=== PATIENT | male | born 1985 | race Caucasian/White ===

== ENCOUNTER 2017-06-08 02:34 | Emergency (ER) | payer MEDICAID, OTHER ==
[2017-06-08] MEDS: KETOROLAC 60 MG INJ IM (03:36)
== END 2017-06-08 05:06 | disposition home or self-care (01) ==
LOC: FTE 02:34
DX: S20.212A Contusion of left front wall of thorax, initial encounter (principal); S40.012A Contusion of left shoulder, initial encounter; F17.210 Nicotine dependence, cigarettes, uncomplicated; V49.40XA Driver injured in collision with unspecified motor vehicles in traffic accident, initial encounter
CPT/HCPCS: 71046; 71110; 73000; 73030; 96372; 99284-25